=== PATIENT | female | born 1950 | race African-American/Black ===

== ENCOUNTER 2020-12-03 20:25 | Inpatient (IN) | payer MEDICARE, OTHER ==
[~2020-12-03] VITALS: Ht 167.6 cm; Wt 93.4 kg
[2020-12-03] MEDS ORDERED: ZINC220T4 PO (20:40)
[2020-12-03] MEDS ORDERED: MELA5TAB PO (20:40)
[2020-12-03] MEDS ORDERED: BENZ0.5T43 PO (20:40)
[2020-12-03] MEDS ORDERED: RISP2TAB85 PO (20:40)
[2020-12-03] MEDS ORDERED: MV-M1TAB18 PO (20:40)
[2020-12-03] MEDS ORDERED: TEMA15CA PO (20:40)
[2020-12-03] MEDS ORDERED: ASCO500C18 PO (20:40)
[2020-12-03] MEDS ORDERED: ACET-2154 PO (20:41)
[2020-12-03] MEDS ORDERED: MAGN400O6 PO (20:41)
[2020-12-03] MEDS ORDERED: CLON0.1T PO (20:41)
[2020-12-03 20:57] LABS: *BILIRUBIN,URIN NEGATIVE (NEGATIVE); *BLOOD, URINE NEGATIVE (NEGATIVE); *CLARITY,URINE CLEAR (CLEAR); *COLOR,URINE YELLOW (YELLOW); *KETONES,URINE NEGATIVE (NEGATIVE); *UROBILINOGEN,URINE 0.2 E.U./dl (NORMAL); LEUKOCYTE ESTERASE ,URINE NEGATIVE (NEGATIVE); NITRITE, URINE NEGATIVE (NEGATIVE); PH,URINE 6.5 (5.0-8.0); UGLUCOSE NEGATIVE (NEGATIVE)
[2020-12-03 20:57] LABS: BASOPHILS # (AUTO) 0.1 K/uL (0.0-8.0); BASOPHILS % (AUTO) 0.6 % (0.0-2.0); EOSINOPHILS # (AUTO) 0.2 K/uL (0.0-0.7); EOSINOPHILS % (AUTO) 1.8 % (0.0-7.0); HEMATOCRIT 37.2 % (31.2-41.9); HEMOGLOBIN 12.5 g/dL (10.9-14.3); LYMPHOCYTES # (AUTO) 2.2 K/uL (20.0-40.0); LYMPHOCYTES % (AUTO) 22.8 % (20.5-51.5); MEAN CORPUSCULAR HEMOGLOBIN 29.2 uug (24.7-32.8); MEAN CORPUSCULAR HGB CONC 34 g/dL (32.3-35.6); MEAN CORPUSCULAR VOLUME 86.9 fL (75.5-95.3); MONOCYTES # (AUTO) 0.9 K/uL (2.0-10.0); MONOCYTES % (AUTO) 9.5 % (0.0-11.0); NEUTROPHILS # (AUTO) 6.3 K/uL (1.8-8.9); NEUTROPHILS % (AUTO) 65.3 % (38.5-71.5); PLATELET COUNT (AUTO) 356 K/uL (179-408); RED BLOOD CELL COUNT(AUTO) 4.28 MIL/uL (3.63-4.92); WHITE BLOOD COUNT (AUTO) 9.7 K/uL (3.8-11.8)
[2020-12-03 21:01] LABS: CARBON DIOXIDE 28 mmol/L (21-32); CHLORIDE 103 mmol/L (98-107); CREATININE 0.9 mg/dL (0.6-1.3); GLUCOSE 131 mg/dL (74-106); POTASSIUM 4.3 mmol/L (3.5-5.1); UREA NITROGEN, BLOOD 24 mg/dL (7-18)
[2020-12-03 21:02] LABS: *AMPHETAMINE, URINE NEGATIVE (NEGATIVE); *CANNABINOID, URINE NEGATIVE (NEGATIVE); *COCCAINE, URINE NEGATIVE (NEGATIVE); *OPIATE, URINE NEGATIVE (NEGATIVE); *PHENCYCLIDINE SCREEN,URINE NEGATIVE (NEGATIVE)
[2020-12-03 21:03] LABS: ETHANOL < 3 MG/DL (0-0)
[2020-12-03 21:07] LABS: ALANINE AMINOTRANSFERASE 42 U/L (14-59); ALKALINE PHOSPHATASE 65 U/L (50-136); ASPARTATE AMINOTRANSFERASE 26 U/L (15-37); BILIRUBIN,DIRECT 0.1 mg/dL (0.0-0.2); BILIRUBIN,TOTAL 0.2 mg/dL (0.2-1.0); TOTAL PROTEIN, SERUM 8.7 g/dL (6.4-8.2)
[2020-12-03 21:08] LABS: ACETAMINOPHEN < 2.0 ug/mL (10-30)
--- NOTE | 2020-12-03 21:22 | NUR ---
Patient is medically cleared by Dr. Gaffney. Paged PET team for eval. but unable to come at this time. Will page again at 2200.
--- NOTE | 2020-12-03 22:46 | NUR ---
Pt. admitted to [facility], under care of Dr. Mayfield/Dr. Gómez. Dx: Psychosis Patient placed on 5150 hold for grave disability. Belongs List completed. MRSA swab done.
[2020-12-03 23:15] VITALS: BP 154/96
[2020-12-03] MEDS ORDERED: ACETAMINOPHEN 325 MG TABLET PO PRN (23:15)
[2020-12-03] MEDS ORDERED: BLOOD SUGAR DIAGNOSTIC 1 EACH STRIP VI ONE (23:15)
[2020-12-03] MEDS ORDERED: MAG HYDROX/AL HYDROX/SIMETH 30 ML LIQUID UDC PO PRN (23:15)
[2020-12-03] MEDS ORDERED: MAGNESIUM HYDROXIDE 30 ML LIQUID UDC PO PRN (23:15)
[2020-12-03] MEDS ORDERED: LORAZEPAM 0.5 MG TABLET PO PRN (23:15)
[2020-12-04] MEDS: TEMAZEPAM 7.5 MG CAPSULE PO PRN (00:31)
--- NOTE | 2020-12-04 00:52 | NUR ---
GPS: Admitted to unit earlier a 70 yr.old female under the care and supervision of /Dr. Roth. Pt.is on a 72 hour hold for GD. Pt.is alert to self only. Confused,disoriented and disorganized. Hyperverbal and talks to self. Needs re-direction from staff. Pt.unable to say why she's in the hospital. Poor historian due to mental condition. Personal belongings list completed. Skin assessment done. Pt's advisement and pt's rights handbook given. Unit rules explained. Oriented to her surroundings. Safe environment provided. Restoril 7.5mg was given for sleep. Will monitor effectiveness.
[2020-12-04 07:30] VITALS: BP 158/90
[2020-12-04] MEDS ORDERED: risperiDONE 0.5 MG TABLET PO SCH (09:00)
[2020-12-04] MEDS: BENZTROPINE MESYLATE 0.5 MG TABLET PO SCH ×2 (09:14→20:20)
[2020-12-04] MEDS: DIVALPROEX 125 MG TABLET.DR PO SCH ×2 (09:14→20:20)
[2020-12-04] MEDS: risperiDONE 1 MG TABLET PO SCH ×2 (09:14→20:20)
--- NOTE | 2020-12-04 10:17 | NUR ---
[facility] Contact: LENCHO spoke with Tamara admin coordinator from [facility] alf facility ([phone]) who confirmed patient is welcome back upon discharge.
--- NOTE | 2020-12-04 10:17 | NUR ---
Firearms Report: Research Consultant completed and submitted a [employer] firearms report for 5150 grave disability certifications. A copy of report has been placed in patient chart.
--- NOTE | 2020-12-04 10:46 | NUR ---
LEN[facility] Initial Discharge Plan: Patient resides at [facility] [address] [place] [address] ([phone]). LENCHO spoke with Vaneshaniqua admin coordinator at the facility who confirmed patient is welcome back upon discharge. LENCHO will continue to work with patient and MD to ensure a safe and proper discharge plan.
--- NOTE | 2020-12-04 10:47 | NUR ---
LENCHO Family Contact: LENCHO called patient's next of kin, Rizwana Hanson ([phone]) however phone number invalid. No Alternate phone numbers available.
[2020-12-04] MEDS: CLONIDINE HCL 0.1 MG TABLET PO SCH ×2 (13:03→20:21)
--- NOTE | 2020-12-04 13:37 | NUR ---
GPS: Nursing Notes: Thought Disorder: Patient is awake and responding to her name, confused, disorganized, disoriented, responding to internal stimuli by talking to self, wandering around the unit aimlessly, forgetful, unable to find her room by self, poor insight, unkempt appearance, episodes of talking incoherently, redirected and reoriented during shift, unable to formulate a viable plan for self care, internally preoccupied, resistant with nursing care at times, needs minimal prompting to participate in therapeutic groups, continue with treatment plan.
[2020-12-04 15:31] VITALS: BP 119/90
[2020-12-04] MEDS: ASCORBIC ACID 500 MG TABLET PO SCH (16:58)
[2020-12-04] MEDS ORDERED: Medication Not On Formulary EA (Ascorbic Acid (Vitamin C) 1,000 MG) PO SCH (17:00)
[2020-12-04] MEDS: MELATONIN 3 MG TABLET PO SCH (20:21)
[2020-12-04] MEDS ORDERED: Medication Not On Formulary EA (Melatonin 10 MG) PO SCH (21:00)
[2020-12-04 21:48] VITALS: BP 121/74
[2020-12-05] MEDS: TEMAZEPAM 7.5 MG CAPSULE PO PRN ×2 (01:21→22:21)
[2020-12-05] MEDS: CLONIDINE HCL 0.1 MG TABLET PO SCH ×3 (05:58→22:22)
[2020-12-05 08:00] VITALS: BP 127/73
[2020-12-05] MEDS: ASCORBIC ACID 500 MG TABLET PO SCH ×2 (10:25→16:11)
[2020-12-05] MEDS: ZINC SULFATE 220 MG CAPSULE PO SCH (10:25)
[2020-12-05] MEDS: risperiDONE 1 MG TABLET PO SCH (10:27)
[2020-12-05] MEDS: BENZTROPINE MESYLATE 0.5 MG TABLET PO SCH ×2 (10:28→20:15)
[2020-12-05] MEDS: DIVALPROEX 125 MG TABLET.DR PO SCH (10:28)
[2020-12-05 16:00] VITALS: BP 118/68
[2020-12-05] MEDS: NICOTINE 14 MG/24HR PATCH TD SCH (18:03)
--- NOTE | 2020-12-05 19:21 | NUR ---
Pt is confused, disoriented and has rambled speech. Pt is easily redirectable and gladly engages in activities. No distress, pt was cooperative throught the shift.
[2020-12-05 20:05] VITALS: BP 140/74
[2020-12-05] MEDS: MELATONIN 3 MG TABLET PO SCH (20:15)
[2020-12-05] MEDS: ATORVASTATIN 10 MG TABLET PO SCH (20:15)
[2020-12-05] MEDS ORDERED: DIVALPROEX 250 MG TABLET.DR PO SCH (21:00)
[2020-12-05] MEDS ORDERED: risperiDONE 1 MG TABLET PO SCH (21:00)
[2020-12-06] MEDS: CLONIDINE HCL 0.1 MG TABLET PO SCH ×3 (06:08→21:02)
[2020-12-06 07:30] VITALS: BP 137/74
[2020-12-06] MEDS: risperiDONE 1 MG TABLET PO SCH (09:23)
[2020-12-06] MEDS: ASCORBIC ACID 500 MG TABLET PO SCH ×2 (09:23→17:21)
[2020-12-06] MEDS: BENZTROPINE MESYLATE 0.5 MG TABLET PO SCH ×2 (09:23→20:23)
[2020-12-06] MEDS: ZINC SULFATE 220 MG CAPSULE PO SCH (09:23)
[2020-12-06] MEDS: NICOTINE 14 MG/24HR PATCH TD SCH (09:24)
--- NOTE | 2020-12-06 12:12 | NUR ---
Gps/Clinical Technician- Stayed in the activity room , this am, participating in her group therapy. Confused, oriented x 1, able to follow simple directions, prompted to take routine am meds. ambulatory , constantly redirected
[2020-12-06 16:00] VITALS: BP 148/89
[2020-12-06 20:08] VITALS: BP 135/84
[2020-12-06] MEDS: ATORVASTATIN 10 MG TABLET PO SCH (20:21)
[2020-12-06] MEDS: MELATONIN 3 MG TABLET PO SCH (20:22)
[2020-12-06] MEDS: risperiDONE 2 MG TABLET PO SCH (20:24)
[2020-12-06] MEDS ORDERED: DIVALPROEX 500 MG TABLET.DR PO SCH (21:00)
[2020-12-06] MEDS ORDERED: risperiDONE 1 MG TABLET PO SCH (21:00)
[2020-12-06] MEDS: TEMAZEPAM 7.5 MG CAPSULE PO PRN (23:06)
--- NOTE | 2020-12-07 06:16 | NUR ---
Pt is calm and cooperative with care, interacts with staff and peers and is easy to redirect. Compliant with medications, sleeping pill given per pt's request and pt was able to sleep for 5 1/2 hours. Oil And Gas Superintendent was able to engage in a meaningful conversation with the pt, pt able to express her feelings about her past. Safety measures maintained.
[2020-12-07] MEDS: CLONIDINE HCL 0.1 MG TABLET PO SCH ×3 (06:21→21:25)
[2020-12-07 07:30] VITALS: BP 146/83
[2020-12-07] MEDS ORDERED: DIVALPROEX 250 MG TABLET.DR PO SCH (08:00)
[2020-12-07] MEDS: NICOTINE 14 MG/24HR PATCH TD SCH (08:28)
[2020-12-07] MEDS: ZINC SULFATE 220 MG CAPSULE PO SCH (08:28)
[2020-12-07] MEDS: ASCORBIC ACID 500 MG TABLET PO SCH ×2 (08:28→16:08)
[2020-12-07] MEDS: BENZTROPINE MESYLATE 0.5 MG TABLET PO SCH ×2 (08:28→20:12)
[2020-12-07] MEDS: risperiDONE 1 MG TABLET PO SCH ×2 (08:28→12:34)
[2020-12-07] MEDS: OXCARBAZEPINE 150 MG TABLET PO SCH ×2 (12:34→16:08)
[2020-12-07 16:18] VITALS: BP 127/89
[2020-12-07] MEDS: risperiDONE 2 MG TABLET PO SCH (20:11)
[2020-12-07] MEDS: MELATONIN 3 MG TABLET PO SCH (20:11)
[2020-12-07] MEDS: ATORVASTATIN 10 MG TABLET PO SCH (20:12)
[2020-12-07 20:54] VITALS: BP 125/72
[2020-12-07] MEDS: TEMAZEPAM 7.5 MG CAPSULE PO PRN (23:16)
--- NOTE | 2020-12-08 05:55 | NUR ---
Received patient in the day room last night. Alert and oriented. The patient continues to talk to herself and is preoccupied with internal stimuli. Multiple times during the shift, the patient said " My drug of choice is crack". Power Barker Operator distracted patient and listened to her future plans. The voices in her head seem to be fixated on crack cocaine. The patient is medication compliant and was up early for a shower. Demeanor is calm. Patient is slightly forgetful, but not confused this am.Total sleep hours were 4.45. No agitation of aggression noted.
[2020-12-08] MEDS: CLONIDINE HCL 0.1 MG TABLET PO SCH ×3 (06:12→22:40)
[2020-12-08 07:30] VITALS: BP 155/88
[2020-12-08] MEDS: ZINC SULFATE 220 MG CAPSULE PO SCH (08:05)
[2020-12-08] MEDS: ASCORBIC ACID 500 MG TABLET PO SCH ×2 (08:05→16:25)
[2020-12-08] MEDS: BENZTROPINE MESYLATE 0.5 MG TABLET PO SCH ×2 (08:05→20:54)
[2020-12-08] MEDS: NICOTINE 14 MG/24HR PATCH TD SCH (08:05)
[2020-12-08] MEDS: OXCARBAZEPINE 150 MG TABLET PO SCH ×3 (08:05→16:25)
[2020-12-08] MEDS: risperiDONE 1 MG TABLET PO SCH ×2 (08:05→12:43)
[2020-12-08 15:54] VITALS: BP 137/89
[2020-12-08 20:00] VITALS: BP 140/85
[2020-12-08] MEDS: MELATONIN 3 MG TABLET PO SCH (20:53)
[2020-12-08] MEDS: ATORVASTATIN 10 MG TABLET PO SCH (20:53)
[2020-12-08] MEDS: risperiDONE 2 MG TABLET PO SCH (20:53)
[2020-12-09] MEDS: CLONIDINE HCL 0.1 MG TABLET PO SCH ×3 (05:32→21:03)
--- NOTE | 2020-12-09 06:27 | NUR ---
Received Pt in the dining room interacting with her peers. A+Ox3, pleasant on approach. Compliant with medications, cooperative with unit rules and staff direction. Episodes of forgetfulness, but responsive to redirection and reorientation. Denies SI/HI and verbally contracts for safety. VS stable, denies pain. No aggressive or combative behaviors.
[2020-12-09 07:30] VITALS: BP 127/68
[2020-12-09] MEDS: ZINC SULFATE 220 MG CAPSULE PO SCH (08:29)
[2020-12-09] MEDS: OXCARBAZEPINE 150 MG TABLET PO SCH ×2 (08:29→16:18)
[2020-12-09] MEDS: risperiDONE 1 MG TABLET PO SCH ×2 (08:29→13:16)
[2020-12-09] MEDS: NICOTINE 14 MG/24HR PATCH TD SCH (08:29)
[2020-12-09] MEDS: ASCORBIC ACID 500 MG TABLET PO SCH ×2 (08:29→16:18)
[2020-12-09] MEDS: BENZTROPINE MESYLATE 0.5 MG TABLET PO SCH ×2 (08:30→21:03)
[2020-12-09 15:02] VITALS: BP 157/91
[2020-12-09 19:59] VITALS: BP 149/89
[2020-12-09] MEDS: MELATONIN 3 MG TABLET PO SCH (21:03)
[2020-12-09] MEDS: risperiDONE 2 MG TABLET PO SCH (21:04)
[2020-12-09] MEDS: ATORVASTATIN 10 MG TABLET PO SCH (21:04)
[2020-12-10] MEDS: CLONIDINE HCL 0.1 MG TABLET PO SCH ×3 (05:52→22:05)
[2020-12-10 07:30] VITALS: BP 107/83
[2020-12-10] MEDS: OXCARBAZEPINE 150 MG TABLET PO SCH ×2 (08:15→16:06)
[2020-12-10] MEDS: risperiDONE 1 MG TABLET PO SCH (08:15)
[2020-12-10] MEDS: ASCORBIC ACID 500 MG TABLET PO SCH ×2 (08:15→16:06)
[2020-12-10] MEDS: NICOTINE 14 MG/24HR PATCH TD SCH (08:15)
[2020-12-10] MEDS: BENZTROPINE MESYLATE 0.5 MG TABLET PO SCH ×2 (08:15→20:32)
[2020-12-10] MEDS: ZINC SULFATE 220 MG CAPSULE PO SCH (08:15)
--- NOTE | 2020-12-10 09:59 | NUR ---
Court Hearing: Patient's court hearing is today and it was upheld for GD.
[2020-12-10] MEDS ORDERED: risperiDONE 1 MG TABLET PO SCH (13:00)
[2020-12-10 15:40] VITALS: BP 136/69
[2020-12-10 20:00] VITALS: BP 145/91
[2020-12-10] MEDS: risperiDONE 2 MG TABLET PO SCH (20:32)
[2020-12-10] MEDS: ATORVASTATIN 10 MG TABLET PO SCH (20:32)
[2020-12-10] MEDS: MELATONIN 3 MG TABLET PO SCH (20:33)
--- NOTE | 2020-12-11 01:42 | NUR ---
RECEIVED PATIENT IN THE ACTIVITY ROOM INTERACTING WITH PEERS. PLEASANT UPON APPROACH AND COMPLIANT WITH HER MEDICATIONS. DISPLAYS SOME EPISODES OF FORGETFULNESS BUT DOES WELL WITH RE DIRECTION. DENIES SI/HI. VISUAL CHECKS MADE ON HER FOR SAFETY. WILL CONTINUE TO MONITOR.
--- NOTE | 2020-12-11 06:51 | NUR ---
SLEPT FOR 7:30HOURS.
[2020-12-11] MEDS: CLONIDINE HCL 0.1 MG TABLET PO SCH ×3 (06:58→21:12)
[2020-12-11 07:30] VITALS: BP 153/86
[2020-12-11] MEDS: ZINC SULFATE 220 MG CAPSULE PO SCH (08:45)
[2020-12-11] MEDS: BENZTROPINE MESYLATE 0.5 MG TABLET PO SCH ×2 (08:45→20:19)
[2020-12-11] MEDS: OXCARBAZEPINE 150 MG TABLET PO SCH ×2 (08:45→16:26)
[2020-12-11] MEDS: ASCORBIC ACID 500 MG TABLET PO SCH ×2 (08:45→16:26)
[2020-12-11] MEDS: NICOTINE 14 MG/24HR PATCH TD SCH (08:46)
[2020-12-11 15:29] VITALS: BP 154/87
[2020-12-11] MEDS: MELATONIN 3 MG TABLET PO SCH (20:19)
[2020-12-11] MEDS: ATORVASTATIN 10 MG TABLET PO SCH (20:19)
[2020-12-11 20:23] VITALS: BP 170/96
[2020-12-11 22:04] VITALS: BP 130/82
[2020-12-11] MEDS: TEMAZEPAM 7.5 MG CAPSULE PO PRN (23:52)
[2020-12-12] MEDS: CLONIDINE HCL 0.1 MG TABLET PO SCH ×3 (05:46→21:11)
--- NOTE | 2020-12-12 06:01 | NUR ---
GPS: Pt.slept for 4.45 last night. Remains confused but easily re-directable. No increased agitation noted. Needs attended. Safety emphasized.
--- NOTE | 2020-12-12 07:20 | NUR ---
Patient report received from auto top mechanic. Patient is alert and oriented x 2-3, becomes forgetful at times. Able to redirect patient. She is calm and cooperative. Vital signs are within normal limits. No reports of SI and HI at this time. Will continue to monitor.
[2020-12-12 07:30] VITALS: BP 122/74
[2020-12-12] MEDS: ZINC SULFATE 220 MG CAPSULE PO SCH (08:43)
[2020-12-12] MEDS: BENZTROPINE MESYLATE 0.5 MG TABLET PO SCH ×2 (08:44→20:10)
[2020-12-12] MEDS: OXCARBAZEPINE 150 MG TABLET PO SCH ×2 (08:44→17:07)
[2020-12-12] MEDS: NICOTINE 14 MG/24HR PATCH TD SCH (08:44)
[2020-12-12] MEDS: ASCORBIC ACID 500 MG TABLET PO SCH ×2 (08:44→17:07)
[2020-12-12 16:48] VITALS: BP 142/86
--- NOTE | 2020-12-12 18:26 | NUR ---
Patient is in the recreational room with others. Calm and cooperative. Has been compliant with medications. Pt pleasant upon approach. Interactive with group. Patient denies SI and HI at this time. Has not been anxious, but confused. Pt able to be redirected.
[2020-12-12] MEDS: ATORVASTATIN 10 MG TABLET PO SCH (20:10)
[2020-12-12] MEDS: MELATONIN 3 MG TABLET PO SCH (20:10)
[2020-12-12 20:31] VITALS: BP 150/86
[2020-12-13] MEDS: CLONIDINE HCL 0.1 MG TABLET PO SCH ×3 (06:23→21:30)
[2020-12-13 07:30] VITALS: BP 150/78
[2020-12-13] MEDS: NICOTINE 14 MG/24HR PATCH TD SCH (08:31)
[2020-12-13] MEDS: BENZTROPINE MESYLATE 0.5 MG TABLET PO SCH ×2 (08:32→20:16)
[2020-12-13] MEDS: ASCORBIC ACID 500 MG TABLET PO SCH ×2 (08:32→16:26)
[2020-12-13] MEDS: ZINC SULFATE 220 MG CAPSULE PO SCH (08:32)
[2020-12-13] MEDS: OXCARBAZEPINE 150 MG TABLET PO SCH ×2 (08:32→16:26)
[2020-12-13 17:14] VITALS: BP 152/91
[2020-12-13 20:04] VITALS: BP 162/96
[2020-12-13] MEDS: MELATONIN 3 MG TABLET PO SCH (20:16)
[2020-12-13] MEDS: ATORVASTATIN 10 MG TABLET PO SCH (20:16)
[2020-12-14] MEDS: CLONIDINE HCL 0.1 MG TABLET PO SCH ×3 (05:49→20:15)
--- NOTE | 2020-12-14 06:46 | NUR ---
GPS: Pt.slept for 7 hrs.last night. No new behavioral problems exhibited. Has confusion with periods of forgetfulness. Re-directed prn. Safe environment provided.
[2020-12-14 07:30] VITALS: BP 136/73
[2020-12-14] MEDS: ASCORBIC ACID 500 MG TABLET PO SCH ×2 (08:37→16:03)
[2020-12-14] MEDS: ZINC SULFATE 220 MG CAPSULE PO SCH (08:37)
[2020-12-14] MEDS: OXCARBAZEPINE 150 MG TABLET PO SCH ×2 (08:37→16:03)
[2020-12-14] MEDS: BENZTROPINE MESYLATE 0.5 MG TABLET PO SCH ×2 (08:37→20:14)
[2020-12-14] MEDS: NICOTINE 14 MG/24HR PATCH TD SCH (08:38)
[2020-12-14 16:11] VITALS: BP 159/86
--- NOTE | 2020-12-14 18:15 | NUR ---
received patient AOx1-2, patient appears disorganized, responding to internal stimuli, patient seen taking naps and joining groups and enjoying snacks, patient on monitoring [id number] for safety, been compliant with medication, milieu therapy and care, assisted with his ADL, denies SI and HI, denies AH/VH at this time, no sign of distress
[2020-12-14 20:06] VITALS: BP 144/82
[2020-12-14] MEDS: ATORVASTATIN 10 MG TABLET PO SCH (20:15)
[2020-12-14] MEDS: MELATONIN 3 MG TABLET PO SCH (20:15)
--- NOTE | 2020-12-15 05:53 | NUR ---
This patient has been calm and pleasant during the shift. Sleep hours were 6.15. last night. The patient woke up twice asking for food but no behavioral issues noted. Safety strategies are in place.
[2020-12-15] MEDS: CLONIDINE HCL 0.1 MG TABLET PO SCH ×3 (06:00→22:02)
[2020-12-15] MEDS: ASCORBIC ACID 500 MG TABLET PO SCH ×2 (08:06→16:00)
[2020-12-15] MEDS: BENZTROPINE MESYLATE 0.5 MG TABLET PO SCH ×2 (08:06→20:08)
[2020-12-15] MEDS: ZINC SULFATE 220 MG CAPSULE PO SCH (08:06)
[2020-12-15] MEDS: NICOTINE 14 MG/24HR PATCH TD SCH (08:06)
[2020-12-15] MEDS: OXCARBAZEPINE 150 MG TABLET PO SCH ×2 (08:06→16:00)
[2020-12-15 08:31] VITALS: BP 131/54
[2020-12-15 16:25] VITALS: BP 154/78
[2020-12-15 20:00] VITALS: BP 169/91
[2020-12-15] MEDS: ATORVASTATIN 10 MG TABLET PO SCH (20:08)
[2020-12-15] MEDS: MELATONIN 3 MG TABLET PO SCH (20:08)
[2020-12-16] MEDS: CLONIDINE HCL 0.1 MG TABLET PO SCH ×3 (05:16→20:29)
[2020-12-16 07:30] VITALS: BP 133/69
[2020-12-16] MEDS: ZINC SULFATE 220 MG CAPSULE PO SCH (08:35)
[2020-12-16] MEDS: NICOTINE 14 MG/24HR PATCH TD SCH (08:35)
[2020-12-16] MEDS: OXCARBAZEPINE 150 MG TABLET PO SCH ×2 (08:35→16:32)
[2020-12-16] MEDS: ASCORBIC ACID 500 MG TABLET PO SCH ×2 (08:35→16:33)
[2020-12-16] MEDS: BENZTROPINE MESYLATE 0.5 MG TABLET PO SCH ×2 (08:36→20:27)
[2020-12-16] MEDS ORDERED: PNEUMOCOCCAL 23-VAL P-SAC VAC 0.5 ML VIAL IM ONE (13:00)
[2020-12-16 16:00] VITALS: BP 129/75
[2020-12-16 20:00] VITALS: BP 142/88
[2020-12-16] MEDS: MELATONIN 3 MG TABLET PO SCH (20:27)
[2020-12-16] MEDS: ATORVASTATIN 10 MG TABLET PO SCH (20:27)
[2020-12-17] MEDS: CLONIDINE HCL 0.1 MG TABLET PO SCH ×2 (05:16→13:22)
--- NOTE | 2020-12-17 05:52 | NUR ---
Patient is happy to be leaving the hospital today. Sleep hours were 5.30. The patient is up early for a shower. No behavioral issues or issues with compliance noted. Continuing to monitor patient for safety and monitoring the patients b/p and will treat if needed per orders.
[2020-12-17 07:30] VITALS: BP 137/71
--- NOTE | 2020-12-17 08:23 | NUR ---
Discharge Note: Patient will be discharged to [facility], [place] [address] ([phone]) via Ambulance transportation at 1:30PM today. Patient Registration Representative spoke with Tamara, Speech Coach at [facility] ([phone]), and he confirmed that patient will be accepted at their facility today. Patient is alert and oriented x3. Patient is not able to plan for self-care at this time but is willing to accept care provided for her at the facility. Patient denies suicidal or homicidal ideation. Patient is aware and agreeable with discharge plans. Patient presents with appropriate mood and congruent affect. Patient will follow-up with Psychiatrist Dr. Mayfield and Magento Developer Dr. Hamlin at [facility]. Patient does not have any family or next of kin contacts.
[2020-12-17] MEDS: BENZTROPINE MESYLATE 0.5 MG TABLET PO SCH (08:40)
[2020-12-17] MEDS: NICOTINE 14 MG/24HR PATCH TD SCH (08:40)
[2020-12-17] MEDS: ASCORBIC ACID 500 MG TABLET PO SCH (08:41)
[2020-12-17] MEDS: ZINC SULFATE 220 MG CAPSULE PO SCH (08:41)
[2020-12-17] MEDS ORDERED: OXCARBAZEPINE 300 MG TABLET PO SCH (09:00)
[2020-12-17 13:22] VITALS: BP 144/83
--- NOTE | 2020-12-17 15:00 | NUR ---
GPS: Nursing Notes: Discharge Notes: Patient is awake and responding to her name, cooperative with nursing care, compliant with her medications, following staff directions, denies SI/HI, denies AH/VH, denies pain or discomfort at this time, denies SOB, discharge to [facility] at [address] [place] [address] ([phone]). report given to facility's nurse - AHMET Kemp, transported to facility via ambulance, took all her belongings with her. Patient will follow up with Dr. Mayfield (psychiatrist) and Dr. Hamlin (supervisor dehydrogenation) for aftercare at the facility.
== END 2020-12-17 15:00 | DRG 885 ==
LOC: ER 20:25 → GPS 22:51
PROVIDERS: ADMIT Psychiatry & Neurology Psychosomatic Medicine; ATTEND Internal Medicine
DX: F20.0 Paranoid schizophrenia (principal); N17.0 Acute kidney failure with tubular necrosis; J44.9 Chronic obstructive pulmonary disease, unspecified; G20 Parkinson's disease; Z20.822 Contact with and (suspected) exposure to COVID-19; E78.5 Hyperlipidemia, unspecified; I10 Essential (primary) hypertension; Z91.19 Patient's noncompliance with other medical treatment and regimen; F29 Unspecified psychosis not due to a substance or known physiological condition; R73.9 Hyperglycemia, unspecified; Z73.6 Limitation of activities due to disability
CPT/HCPCS: 36415; 71045; 85025; 90732; 93005; A4663; G0480; J3490; U0003